=== PATIENT | male | born 1985 | race Caucasian/White ===

== ENCOUNTER → 2019-07-27 | Outpatient (CLI) | payer BC ==
[~2019-07-27] MED LIST: ALLEGRA 180MG180 MG PO; ASTEPRO205.5 MCG/ NS; LORTAB 5/500 501 TAB PO; PHENERGAN 25 TA25 MG PO; TRAMADOL50 MG PO; TYLENOL 500MG500 MG PO; VENTOLIN0.09 MG IH; ZOFRAN4 MG PO; ZYRTEC5 MG PO
== END ==
LOC: COL.RAD 07:49
DX: R10.11 Right upper quadrant pain (principal)
CPT/HCPCS: A9537

== ENCOUNTER 2019-08-11 05:50 | Day surgery (SDC) | payer BC ==
[~2019-08-11] VITALS: Ht 170.2 cm; Wt 88.9 kg
[2019-08-11 06:06] VITALS: BP 126/80; PULSE 93; TEMP 98.3
[2019-08-11] MEDS ORDERED: XYZAL5 MG PO (06:08)
[2019-08-11] MEDS ORDERED: PROTONIX 40MG T40 MG PO (06:08)
[2019-08-11] MEDS ORDERED: OMEGA-3 1000 MG1 CAP PO (06:08)
[2019-08-11] MEDS ORDERED: MULTIPLE VITAMI1 TA5 PO (06:09)
[2019-08-11] MEDS ORDERED: NORCO 325 MG-51 TAB PO (08:22)
[2019-08-11 09:15] VITALS: BP 132/72; PULSE 90; TEMP 98.1
--- NOTE | 2019-08-11 09:15 | NUR ---
The patient arrived back to [facility] from the recovery room at this time. The patient appears alert and oriented and denies any pain or nausea at this time. The patient agrees to try some water and orange jello. The patient's post operative vital signs were started at this time. The patient has bandaids to his abdomen that appear clean, dry and intact. Post operative vitla signs were started at this time. Call light is within reach. Will continue to monitor the patient.
[2019-08-11 09:30] VITALS: BP 130/73; PULSE 80
--- NOTE | 2019-08-11 09:30 | NUR ---
The patient ambulated to the bathroom with the stand by assistance of one nurse and appeared to tolerate the activity well. The patient did report some nausea upon returning to his room from succuessfully voiding. The patient was given a cool wash cloth and helped to lay back down in bed. The nurse also told the patient to take small sips of water or bites of his ice chips for now and wait on the jello. Will continue to monitor the patient.
[2019-08-11 09:45] VITALS: BP 118/70; PULSE 86
--- NOTE | 2019-08-11 09:45 | NUR ---
The patient's friend was brought back to be at his bedside. The patient has now tried some of his jello after the nausea passed and appears to be tolerating it well. Will continue to monitor the patient.
[2019-08-11 10:00] VITALS: BP 125/84; PULSE 70
--- NOTE | 2019-08-11 10:00 | NUR ---
The patient was given a PRN dose of [place] one tab at this time for continued pain control upon discharge. Vital signs appear stable. Call light remains within reach. Will continue to monitor the patient.
[2019-08-11 10:30] VITALS: BP 122/69; PULSE 97
--- NOTE | 2019-08-11 10:30 | NUR ---
The patient voices a desire to ambulate to the bathroom and then get change and be discharged home. The patient's IV was INT'd at this time.
--- NOTE | 2019-08-11 10:55 | NUR ---
Discharge instructions were reviewed with the patient and his friend at this time. They both verbalized understanding and have no questions for the nurse at this time. The patient's IV to his left hand was removed and a pressure dressing was applied to the site. The patient is dressed and ready to be escorted out.
--- NOTE | 2019-08-11 11:04 | NUR ---
The patient was escorted out via wheelchair to a private vehicle by LUIS ANGEL Chau. The patient's belongings and discharge paperwork were sent with him. The patient's friend is present to drive him home.
== END 2019-08-11 11:04 | disposition home or self-care (01) ==
LOC: SDCO 05:50
DX: K81.1 Chronic cholecystitis (principal); Z79.899 Other long term (current) drug therapy; K21.9 Gastro-esophageal reflux disease without esophagitis; J45.909 Unspecified asthma, uncomplicated; F41.9 Anxiety disorder, unspecified
CPT/HCPCS: J0690; J1100; J1170; J1885; J2405; J2704; J7120